=== PATIENT | male | born 1990 | race African-American/Black ===

== ENCOUNTER 2019-09-19 16:24 | Inpatient (IN) | payer OTHER ==
[2019-09-19] VITALS (9 sets, daily range): BP systolic 115–164; BP diastolic 62–104
[~2019-09-19] VITALS: Ht 170.2 cm; Wt 85.3 kg
--- NOTE | 2019-09-19 16:15 | NUR ---
Rec'd from [facility] floor from Dr Mayfield service for GI bleed still reportdly bleeding. reportedly rec'd 4 UPRBC there. IV x 1 patent. Pt very A&O, young man Denies any discomfort. at bedside. NS started. VSS. On RA. Skin warm and dry. SR Orders and labs placed. NPO for now. Bleeding scan ordered and consults called for GI and surgery. Will cont to monitor and complete adm process.
[2019-09-19] MEDS ORDERED: ACETAMINOPHEN 500 MG TABLET PO ONE (17:15)
[2019-09-19] MEDS ORDERED: ONDANSETRON PF 4 MG/2 ML VIAL. IVP PRN (17:15)
[2019-09-19] MEDS ORDERED: diphenhydrAMINE HCL 25 MG CAPSULE PO PRN (17:15)
[2019-09-19 17:19] LABS: BASO % 0 % (0-3); EOS # 0.2 x10^3/uL (0.0-0.7); EOS % 3 % (0-3); HEMATOCRIT 23.6 % (39.0-53.0); HEMOGLOBIN 7.6 g/dL (13.0-17.5); LYMPH # 2.3 x10^3/uL (1.0-4.8); LYMPH % 30 % (24-48); MEAN CORPUSCULAR HEMOGLOBIN 23 pg (25-35); MEAN CORPUSCULAR HGB CONC 32 g/dL (31-37); MEAN CORPUSCULAR VOLUME 71 fL (79-100); MONO # 0.8 x10^3/uL (0.0-1.1); MONO % 11 % (0-9); NEUT # 4.4 x10^3/uL (1.8-7.7); NEUT % 57 % (31-73); PLATELET COUNT 212 x10^3/uL (140-400); RED BLOOD COUNT 3.31 x10^6/uL (4.30-5.70); RED CELL DISTRIBUTION WIDTH 30.2 % (11.5-14.5); WHITE BLOOD COUNT 7.8 x10^3/uL (4.0-11.0)
[2019-09-19 17:23] LABS: CALCIUM 8.6 mg/dL (8.5-10.1); CREATININE 1.1 mg/dL (0.7-1.3); GFR 80.3; POTASSIUM 3.9 mmol/L (3.5-5.1)
[2019-09-19] MEDS ORDERED: PANTOPRAZOLE IV PUSH 40 MG VIAL. IVP SCH (17:30)
[2019-09-19 17:54] LABS: PLT ESTIMATE ADEQUATE (ADEQUATE)
[2019-09-19 17:55] LABS: HYPOCHROMIA MARKED; POIKILOCYTOSIS SLIGHT; POLYCHROMASIA SLIGHT
[2019-09-19 17:56] LABS: ANISOCYTOSIS MARKED; MICROCYTOSIS MOD; SCHISTOCYTES OCC
[2019-09-19] MEDS ORDERED: HEPARIN for NUC MED 500 UNIT/5 ML DISP.SYRIN. IV ONE (18:00)
--- NOTE | 2019-09-19 18:15 | NUR ---
To Bleeding scan with monitor
[2019-09-19] MEDS: IV NORMAL SALINE 1000ML BAG 1,000 ML IV SCH (18:23)
--- NOTE | 2019-09-19 20:06 | RAD ---
Examination: GI BLEED History: Bloody stools of the past 2 weeks which have become more frequent Comparison/Correlation: None Findings: 30 mCi technetium 99m UltraTag was utilized for GI bleed scan examination. Imaging was performed up to 53 minutes. Distribution of radiotracer is unremarkable. There is no abnormal distribution radiotracer suspicious for GI bleed. Impression: No evidence of active GI bleed. Electronically signed by: Stevenson Adrian MD (09/19/2019 8:03 PM) [facility]
[2019-09-19] MEDS ORDERED: IOHEXOL 350 MG/ML 100 ML VIAL. IV ONE (20:45)
[2019-09-19] MEDS ORDERED: CONTRAST GIVEN. MC PRN (20:45)
[2019-09-19] MEDS: PANTOPRAZOLE SODIUM IV DRIP 80 MG in IV NORMAL SALINE 100ML 100 ML IV SCH (20:53)
[2019-09-19] MEDS ORDERED: PANTOPRAZOLE IV PUSH 40 MG VIAL. IVP ONE (21:00)
--- NOTE | 2019-09-19 21:35 | RAD ---
Examination: CT ANGIOGRAPHY ABD AND PELVIS History: Very low hemoglobin. Possible GI bleed. Comparison/Correlation: July the wrist and urinary bladder scan performed earlier on the same day Findings: Axial images of the abdomen and pelvis were obtained prior to and following IV contrast. Arterial phase imaging was performed post contrast. Portal venous phase imaging also was performed post contrast. Maximum intensity projection 3-D reconstruction images provided. Sagittal and coronal reformatted images provided. Minimal bibasilar atelectasis noted. Liver, spleen, pancreas, and adrenal glands are unremarkable. Kidneys are normal. Gallbladder fossa is unremarkable. Punctate nonobstructive left renal lower pole calyceal calculus is present.. No hydronephrosis. Moderate quantity of stool in the colon noted. Appendix is normal. No ascites or pelvic free fluid. No extraluminal gas. No bowel obstruction. Arterial vasculature of the abdomen and pelvis is normal with no stenoses or extravasation. No aneurysm identified. Sacralization of L5 is noted. Impression: No abnormal distribution of contrast to suggest GI bleed. No extravasation of contrast. No ascites or pelvic free fluid. Punctate nonobstructive left renal calculus. PQRS Compliance Statement: One or more of the following individualized dose reduction techniques were utilized for this examination: 1. Automated exposure control 2. Adjustment of the mA and/or kV according to patient size 3. Use of iterative reconstruction technique Electronically signed by: Stevenson Adrian MD (09/19/2019 9:32 PM) [facility]
--- NOTE | 2019-09-19 23:00 | NUR ---
Pt bleeding scan resulted negative by radiologist. Results called to Dr. Rivera, on-call MD for GI. Received order for CT of abd/pelvis with contrast, change protonix 40 mg BID to IV gtt Protonix/dose of 80 mg IVP, okay for pt to have clear liquids if CT is negative. CT of abd/pelvis resulted negative by radiologist. Repeat hemogram showed Hgb of 7.6. Dr. Mayfield also updated on pt status. Received order "ok to tranfuse one unit PRBC if pt Hgb <7", draw hemogram Q6hrs. Orders all entered into system. Pts VSS, denies pain, afebrile. Pt is currently resting with eyes closed and call light within reach. Will continue to monitor.
[2019-09-19 23:46] LABS: HEMATOCRIT 23.9 % (39.0-53.0); HEMOGLOBIN 7.6 g/dL (13.0-17.5); RED BLOOD COUNT 3.36 x10^6/uL (4.30-5.70); RED CELL DISTRIBUTION WIDTH 29.9 % (11.5-14.5); WHITE BLOOD COUNT 8.7 x10^3/uL (4.0-11.0)
[2019-09-20] VITALS (14 sets, daily range): BP systolic 112–157; BP diastolic 57–98
[2019-09-20] MEDS: IV NORMAL SALINE 1000ML BAG 1,000 ML IV SCH ×2 (01:00→05:52)
--- NOTE | 2019-09-20 01:50 | NUR ---
Dr. Lebron notified of positive pt sepsis screen. Lactic drawn, blood cultures drawn. No new orders received at this time.
[2019-09-20] MEDS: PANTOPRAZOLE SODIUM IV DRIP 80 MG in IV NORMAL SALINE 100ML 100 ML IV SCH ×2 (04:03→15:48)
[2019-09-20 05:18] LABS: HEMOGLOBIN 7.5 g/dL (13.0-17.5); RED BLOOD COUNT 3.36 x10^6/uL (4.30-5.70); RED CELL DISTRIBUTION WIDTH 30.1 % (11.5-14.5); WHITE BLOOD COUNT 8.6 x10^3/uL (4.0-11.0)
[2019-09-20 05:24] LABS: CALCIUM 8.2 mg/dL (8.5-10.1); CREATININE 1.1 mg/dL (0.7-1.3); GFR 80.3; POTASSIUM 3.7 mmol/L (3.5-5.1)
[2019-09-20] MEDS ORDERED: IRON SUCROSE COMPLEX 200 MG in IV NORMAL SALINE 100ML 100 ML IV ONE (09:00)
--- NOTE | 2019-09-20 09:07 | PDOC2 ---
CONSULT Date of Consult Date of Consult DATE: 09/20/19 TIME: 09:04 Reason for Consult Reason for Consult: Anemia possible GI bleed Referring Physician Referring Physician: Chaparro Identification/Chief Complaint Chief Complaint Weak fatigue Source Source: Chart review, Patient History of Present Illness Reason for Visit: 29-year-old male who was feeling very weak and fatigued and short of breath when he was brought to the emergency room by his family for these complaints he has never had any abdominal pain and only bleeding is ever noticed was some blood with bowel movements on the toilet tissue no bleeding in between bowel movements no vomiting of blood. Currently resting comfortably in bed feeling much better after being transfused has had no bleeding from the rectum Past Medical History Cardiovascular: No pertinent hx Pulmonary: No pertinent hx GI: No pertinent hx Heme/Onc: No pertinent hx Hepatobiliary: No pertinent hx Psych: No pertinent hx Rheumatologic: No pertinent hx Infectious disease: No pertinent hx ENT: No pertinent hx Renal/: No pertinent hx Endocrine: No pertinent hx Dermatology: No pertinent hx Past Surgical History Past Surgical History: No pertinent history Family History Family History: Family History Unknown Social History No ALCOHOL: rare Drugs: None Lives: with Family Current Medications Current Medications Current Medications Pantoprazole Sodium (PROTONIX VIAL for IV PUSH) 40 mg Q12HR IVP ; Start 09/19/19 at 17:30; Stop 09/19/19 at 20:32; Status DC Sodium Chloride 1,000 ml @ 75 mls/hr [id number] IV Last administered on 09/20/19at 05:52; Start 09/19/19 at 17:00 Ondansetron HCl (Zofran) 4 mg PRN Q6HRS PRN IVP NAUSEA/VOMITING; Start 09/19/19 at 17:15 Diphenhydramine HCl (Benadryl) 25 mg 1X PRN PO ALLERGIES; Start 09/19/19 at 17:15 Acetaminophen (Tylenol) 1,000 mg 1X ONCE PO ; Start 09/19/19 at 17:15; Stop 09/19/19 at 17:16; Status DC Heparin Sodium (Porcine) (HEPARIN for NUC MED) 100 unit 1X ONCE IV ; Start 09/19/19 at 18:00; Stop 09/19/19 at 18:04; Status DC Pantoprazole Sodium (PROTONIX VIAL for IV PUSH) 80 mg ONCE ONCE IVP Last administered on 09/19/19at 21:34; Start 09/19/19 at 21:00; Stop 09/19/19 at 21:01; Status DC Pantoprazole Sodium 80 mg/ Sodium Chloride 100 ml @ 10 mls/hr Q10H IV Last administered on 09/20/19at 04:03; Start 09/19/19 at 21:00 Iohexol (Omnipaque 350 Mg/ml) 90 ml 1X ONCE IV Last administered on 09/19/19at 20:45; Start 09/19/19 at 20:45; Stop 09/19/19 at 20:46; Status DC Info (CONTRAST GIVEN -- Rx MONITORING) 1 each PRN DAILY PRN MC SEE COMMENTS; Start 09/19/19 at 20:45; Stop 09/21/19 at 20:44 Iron Sucrose 200 mg/Sodium Chloride 110 ml @ 55 mls/hr 1X ONCE IV Last administered on 09/20/19at 08:36; Start 09/20/19 at 09:00; Stop 09/20/19 at 10:59 Active Scripts Active Reported No Known Medications Prior To Admisstion (Info) Each 1 Each 1X Allergies Allergies: Coded Allergies: No Known Allergies (Verified Allergy, Unknown, 09/19/19) Physical Exam General: Alert, Oriented X3, Cooperative, No acute distress HEENT: Atraumatic, PERRLA, EOMI Lungs: Clear to auscultation, Normal air movement Heart: Regular rate, No murmurs Abdomen: Normal bowel sounds, Soft, No tenderness Extremities: No edema Skin: No significant lesion Neuro: Normal speech Psych/Mental Status: Mental status NL Vitals VITALS Vital Signs Date Time Temp Pulse Resp B/P (MAP) Pulse Ox O2 Delivery O2 Flow Rate FiO2 09/20/19 08:00 Room Air 09/20/19 06:00 75 19 123/70 (87) 100 09/20/19 04:00 98.8 98.8 Labs Labs Laboratory Tests Test 09/19/19 17:10 09/19/19 23:35 09/20/19 04:00 White Blood Count 7.8 x10^3/uL (4.0-11.0) 8.7 x10^3/uL (4.0-11.0) 8.6 x10^3/uL (4.0-11.0) Red Blood Count 3.31 x10^6/uL (4.30-5.70) 3.36 x10^6/uL (4.30-5.70) 3.36 x10^6/uL (4.30-5.70) Hemoglobin 7.6 g/dL (13.0-17.5) 7.6 g/dL (13.0-17.5) 7.5 g/dL (13.0-17.5) Hematocrit 23.6 % (39.0-53.0) 23.9 % (39.0-53.0) 24.0 % (39.0-53.0) Mean Corpuscular Volume 71 fL (79-100) 71 fL (79-100) 71 fL (79-100) Mean Corpuscular Hemoglobin 23 pg (25-35) 23 pg (25-35) 22 pg (25-35) Mean Corpuscular Hemoglobin Concent 32 g/dL (31-37) 32 g/dL (31-37) 31 g/dL (31-37) Red Cell Distribution Width 30.2 % (11.5-14.5) 29.9 % (11.5-14.5) 30.1 % (11.5-14.5) Platelet Count 212 x10^3/uL (140-400) 213 x10^3/uL (140-400) 224 x10^3/uL (140-400) Neutrophils (%) (Auto) 57 % (31-73) Lymphocytes (%) (Auto) 30 % (24-48) Monocytes (%) (Auto) 11 % (0-9) Eosinophils (%) (Auto) 3 % (0-3) Basophils (%) (Auto) 0 % (0-3) Neutrophils # (Auto) 4.4 x10^3/uL (1.8-7.7) Lymphocytes # (Auto) 2.3 x10^3/uL (1.0-4.8) Monocytes # (Auto) 0.8 x10^3/uL (0.0-1.1) Eosinophils # (Auto) 0.2 x10^3/uL (0.0-0.7) Basophils # (Auto) 0.0 x10^3/uL (0.0-0.2) Platelet Estimate Adequate (ADEQUATE) Polychromasia Slight Hypochromasia Marked Poikilocytosis Slight Anisocytosis Marked Microcytosis Mod Crenated Cell Present Schistocytes Occ Sodium Level 140 mmol/L (136-145) 142 mmol/L (136-145) Potassium Level 3.9 mmol/L (3.5-5.1) 3.7 mmol/L (3.5-5.1) Chloride Level 104 mmol/L (98-107) 106 mmol/L (98-107) Carbon Dioxide Level 27 mmol/L (21-32) 25 mmol/L (21-32) Anion Gap 9 (6-14) 11 (6-14) Blood Urea Nitrogen 11 mg/dL (8-26) 9 mg/dL (8-26) Creatinine 1.1 mg/dL (0.7-1.3) 1.1 mg/dL (0.7-1.3) Estimated GFR (Cockcroft-Gault) 80.3 80.3 Glucose Level 97 mg/dL (70-99) 91 mg/dL (70-99) Calcium Level 8.6 mg/dL (8.5-10.1) 8.2 mg/dL (8.5-10.1) Laboratory Tests Test 09/19/19 17:10 09/19/19 23:35 09/20/19 04:00 White Blood Count 7.8 x10^3/uL (4.0-11.0) 8.7 x10^3/uL (4.0-11.0) 8.6 x10^3/uL (4.0-11.0) Red Blood Count 3.31 x10^6/uL (4.30-5.70) 3.36 x10^6/uL (4.30-5.70) 3.36 x10^6/uL (4.30-5.70) Hemoglobin 7.6 g/dL (13.0-17.5) 7.6 g/dL (13.0-17.5) 7.5 g/dL (13.0-17.5) Hematocrit 23.6 % (39.0-53.0) 23.9 % (39.0-53.0) 24.0 % (39.0-53.0) Mean Corpuscular Volume 71 fL (79-100) 71 fL (79-100) 71 fL (79-100) Mean Corpuscular Hemoglobin 23 pg (25-35) 23 pg (25-35) 22 pg (25-35) Mean Corpuscular Hemoglobin Concent 32 g/dL (31-37) 32 g/dL (31-37) 31 g/dL (31-37) Red Cell Distribution Width 30.2 % (11.5-14.5) 29.9 % (11.5-14.5) 30.1 % (11.5-14.5) Platelet Count 212 x10^3/uL (140-400) 213 x10^3/uL (140-400) 224 x10^3/uL (140-400) Neutrophils (%) (Auto) 57 % (31-73) Lymphocytes (%) (Auto) 30 % (24-48) Monocytes (%) (Auto) 11 % (0-9) Eosinophils (%) (Auto) 3 % (0-3) Basophils (%) (Auto) 0 % (0-3) Neutrophils # (Auto) 4.4 x10^3/uL (1.8-7.7) Lymphocytes # (Auto) 2.3 x10^3/uL (1.0-4.8) Monocytes # (Auto) 0.8 x10^3/uL (0.0-1.1) Eosinophils # (Auto) 0.2 x10^3/uL (0.0-0.7) Basophils # (Auto) 0.0 x10^3/uL (0.0-0.2) Platelet Estimate Adequate (ADEQUATE) Polychromasia Slight Hypochromasia Marked Poikilocytosis Slight Anisocytosis Marked Microcytosis Mod Crenated Cell Present Schistocytes Occ Sodium Level 140 mmol/L (136-145) 142 mmol/L (136-145) Potassium Level 3.9 mmol/L (3.5-5.1) 3.7 mmol/L (3.5-5.1) Chloride Level 104 mmol/L (98-107) 106 mmol/L (98-107) Carbon Dioxide Level 27 mmol/L (21-32) 25 mmol/L (21-32) Anion Gap 9 (6-14) 11 (6-14) Blood Urea Nitrogen 11 mg/dL (8-26) 9 mg/dL (8-26) Creatinine 1.1 mg/dL (0.7-1.3) 1.1 mg/dL (0.7-1.3) Estimated GFR (Cockcroft-Gault) 80.3 80.3 Glucose Level 97 mg/dL (70-99) 91 mg/dL (70-99) Calcium Level 8.6 mg/dL (8.5-10.1) 8.2 mg/dL (8.5-10.1) Images Images [facility] bleeding scan was negative and CT scan also negative for GI blee d Assessment/Plan Assessment/Plan Anemia of unknown cause unlikely GI bleed No surgical indications at this time we'll follow and review evaluations by other specialists No surgical recommendations JC SULLIVAN MD Sep 20, 2019 09:07
--- NOTE | 2019-09-20 11:03 | PDOC2 ---
GI CONSULT Reason For Consult: anemia HPI: HPI: 29 y/o AAM with a 2.5 week history of rectal bleeding. He admits to weakness and shortness of breath. He does take Ibuprofen twice weekly. He went to [place] and was reportedly found to have a Hgb of 3.8. CTA and GI bleed scan are negative. He received 4 units PRBCs at [place] and has a Hgb of 7.5. 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 Her denies nausea, vomiting, abdominal pain, diarrhea or constipation. he has 2 BMs daily. 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[employer] on the weekend no IVDA Social History: Smoke: No ALCOHOL: heavy Drugs: None ROS: GEN: positive for fatigue HEENT: Denies blurred vision, sore throat CV: Denies chest pain RESP: positive for shortness of air, GI: Per HPI : Denies hematuria, dysuria ENDO: Denies weight changes NEURO: Denies confusion, dizziness MSK: positive joint pain/swelling SKIN: Denies jaundice, pruritus VItals: Vitals: Vital Signs Date Time Temp Pulse Resp B/P (MAP) Pulse Ox O2 Delivery O2 Flow Rate FiO2 09/20/19 10:00 81 15 149/98 (115) 100 Room Air 09/20/19 08:00 99.1 99.1 Labs: Labs: Laboratory Tests Test 09/19/19 17:10 09/19/19 23:35 09/20/19 04:00 White Blood Count 7.8 x10^3/uL (4.0-11.0) 8.7 x10^3/uL (4.0-11.0) 8.6 x10^3/uL (4.0-11.0) Red Blood Count 3.31 x10^6/uL (4.30-5.70) 3.36 x10^6/uL (4.30-5.70) 3.36 x10^6/uL (4.30-5.70) Hemoglobin 7.6 g/dL (13.0-17.5) 7.6 g/dL (13.0-17.5) 7.5 g/dL (13.0-17.5) Hematocrit 23.6 % (39.0-53.0) 23.9 % (39.0-53.0) 24.0 % (39.0-53.0) Mean Corpuscular Volume 71 fL (79-100) 71 fL (79-100) 71 fL (79-100) Mean Corpuscular Hemoglobin 23 pg (25-35) 23 pg (25-35) 22 pg (25-35) Mean Corpuscular Hemoglobin Concent 32 g/dL (31-37) 32 g/dL (31-37) 31 g/dL (31-37) Red Cell Distribution Width 30.2 % (11.5-14.5) 29.9 % (11.5-14.5) 30.1 % (11.5-14.5) Platelet Count 212 x10^3/uL (140-400) 213 x10^3/uL (140-400) 224 x10^3/uL (140-400) Neutrophils (%) (Auto) 57 % (31-73) Lymphocytes (%) (Auto) 30 % (24-48) Monocytes (%) (Auto) 11 % (0-9) Eosinophils (%) (Auto) 3 % (0-3) Basophils (%) (Auto) 0 % (0-3) Neutrophils # (Auto) 4.4 x10^3/uL (1.8-7.7) Lymphocytes # (Auto) 2.3 x10^3/uL (1.0-4.8) Monocytes # (Auto) 0.8 x10^3/uL (0.0-1.1) Eosinophils # (Auto) 0.2 x10^3/uL (0.0-0.7) Basophils # (Auto) 0.0 x10^3/uL (0.0-0.2) Platelet Estimate Adequate (ADEQUATE) Polychromasia Slight Hypochromasia Marked Poikilocytosis Slight Anisocytosis Marked Microcytosis Mod Crenated Cell Present Schistocytes Occ Sodium Level 140 mmol/L (136-145) 142 mmol/L (136-145) Potassium Level 3.9 mmol/L (3.5-5.1) 3.7 mmol/L (3.5-5.1) Chloride Level 104 mmol/L (98-107) 106 mmol/L (98-107) Carbon Dioxide Level 27 mmol/L (21-32) 25 mmol/L (21-32) Anion Gap 9 (6-14) 11 (6-14) Blood Urea Nitrogen 11 mg/dL (8-26) 9 mg/dL (8-26) Creatinine 1.1 mg/dL (0.7-1.3) 1.1 mg/dL (0.7-1.3) Estimated GFR (Cockcroft-Gault) 80.3 80.3 Glucose Level 97 mg/dL (70-99) 91 mg/dL (70-99) Calcium Level 8.6 mg/dL (8.5-10.1) 8.2 mg/dL (8.5-10.1) Imaging: Imaging: PATIENT: RUY ASENCIO ACCOUNT: [id number] : 1990 LOCATION: [address] [place] [address] AGE: 29 SEX: M EXAM STATUS: ADM IN ORD. PHYSICIAN: ALMA GOODSON MD REASON: Critically low Hgb, possible GI bleed PROCEDURE: CT ANGIOGRAPHY ABD AND PELVIS Examination: CT ANGIOGRAPHY ABD AND PELVIS History: Very low hemoglobin. Possible GI bleed. Comparison/Correlation: July the wrist and urinary bladder scan performed earlier on the same day Findings: Axial images of the abdomen and pelvis were obtained prior to and following IV contrast. Arterial phase imaging was performed post contrast. Portal venous phase imaging also was performed post contrast. Maximum intensity projection 3-D reconstruction images provided. Sagittal and coronal reformatted images provided. Minimal bibasilar atelectasis noted. Liver, spleen, pancreas, and adrenal glands are unremarkable. Kidneys are normal. Gallbladder fossa is unremarkable. Punctate nonobstructive left renal lower pole calyceal calculus is present.. No hydronephrosis. Moderate quantity of stool in the colon noted. Appendix is normal. No ascites or pelvic free fluid. No extraluminal gas. No bowel obstruction. Arterial vasculature of the abdomen and pelvis is normal with no stenoses or extravasation. No aneurysm identified. Sacralization of L5 is noted. Impression: No abnormal distribution of contrast to suggest GI bleed. No extravasation of contrast. No ascites or pelvic free fluid. Punctate nonobstructive left renal calculus. RS Compliance Statement: One or more of the following individualized dose reduction techniques were utilized for this examination: 1. Automated exposure control 2. Adjustment of the mA and/or kV according to patient size 3. Use of iterative reconstruction technique Electronically signed by: Stevenson Vasquez MD (09/19/2019 9:32 PM) [facility] DICTATED and SIGNED BY: STEVENSON VASQUEZ MD DATE: 09/19/192131 PATIENT: RUY ASENCIO ACCOUNT: [id number] : 1990 LOCATION: [address] [place] [address] AGE: 29 SEX: M EXAM STATUS: ADM IN ORD. PHYSICIAN: LUMA LAWLER MD REASON: gi bleed Tech was called PROCEDURE: GI BLEED Examination: GI BLEED History: Bloody stools of the past 2 weeks which have become more frequent Comparison/Correlation: None Findings: 30 mCi technetium 99m UltraTag was utilized for GI bleed scan examination. Imaging was performed up to 53 minutes. Distribution of radiotracer is unremarkable. There is no abnormal distribution radiotracer suspicious for GI bleed. Impression: No evidence of active GI bleed. Electronically signed by: Stevenson Vasquez MD (09/19/2019 8:03 PM) [facility] PE: GEN: NAD HEENT: Atraumatic, PERRLA LUNGS: CTAB HEART: RRR, no murmurs ABD: NABS, S/ND/NT, no masses EXTREMITY: No edema SKIN: No rashes, no jaundice NEURO/PSYCH: A & O 3 A/P: A/P: A 1) Anemia 2) Rectal bleed P 1) No iron indices checked prior to PRBCs or IV iron 2) Will continue PPI 3) Plan for EGD/Colon tomorrow ALMA GOODSON MD Sep 20, 2019 11:03
[2019-09-20] MEDS ORDERED: 0.9 % SODIUM CHLORIDE 10 ML DISP.SYRIN. IV PRN ×2 (11:15)
--- NOTE | 2019-09-20 11:29 | HP ---
ADMIT DATE: 09/19/2019 HISTORY OF PRESENT ILLNESS: The patient is a 29-year-old -[place] male patient who was admitted to the [facility] through the Emergency Room where he presented with increasing shortness of breath and generalized weakness. He stated that his heart was beating fast and he is getting tired all the time as well as he did also complain of chest discomfort. He was on an assignment in [facility] for approximately 6 months before returning to [facility] and he is up-to-date on his vaccination. He stated that in June of this year he has had lab work and was told his lab works are all fine and that he is perfectly healthy. He has never had any history of DVT or pulmonary embolism. He did complain of occasional episode of fresh blood per rectum; however, he has never had any esophagogastroduodenoscopy and colonoscopy. He was extensively investigated in the Emergency Room and his initial lab work showed that his hemoglobin was 3.8, hematocrit 13.4 with an MCV of only 59, although his white cell count and platelets are within normal range. His blood film showed that the patient has polychromasia, hypochromasia, anisocytosis, microcytosis and teardrop cells that are few. He was also noted to have hypokalemia and slightly elevated serum creatinine of 1.4. His prothrombin time and aPTT were normal. His D-dimer was slightly elevated 2.23 mg/dL. Urinalysis was essentially unremarkable and toxic screen was negative. The patient was admitted and has received 4 units of packed RBCs. In fact prior to transfer from [facility], his hemoglobin has risen to 7.9 and 25.2. His white cell count was 9200 and a platelet count of 222,000. His chemistry also has improved. His iron studies showed that his serum iron was only 8, TIBC was 518, iron saturation was 2%, and serum ferritin was only 4 ng/mL. The patient was transferred to [facility] as he had large amount of fresh blood per rectum when he had bowel movement in the bathroom and also some on his bedsheet and therefore he was transferred to [facility] to arrange for a bleeding scan to continue obviously monitoring his H and H and to consult the Gastroenterology and surgical team and obviously interventional radiologist. The PET scan was positive. PAST MEDICAL HISTORY: Unremarkable. PAST SURGICAL HISTORY: Significant for tonsillectomy, wisdom tooth extraction, vasectomy and left knee arthroscopic surgery. ALLERGIES: He has no known drug allergies. MEDICATIONS: He is not taking any medication by prescription or otherwise. He uses ibuprofen on an as needed basis for aches and pains. FAMILY HISTORY: He has 4 half-brothers and 4 half-sisters who are seemingly healthy. His father is still alive at the age of 50 and has had permanent pacemaker when he was 42 years old. His mother is alive at the age of 47 and has problem with anemia. She apparently has heavy periods and dysfunctional uterine bleeding requiring blood transfusion and eventually total abdominal hysterectomy. There is no family history of any blood disease. In particular, there is no history of sickle cell trait or sickle cell anemia. SOCIAL HISTORY: He is , has a son and a daughter. He does not smoke, drink alcohol or use recreational drugs. 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 He has had assignment to [employer] and [employer]. When he was in [place], he took a prophylactic medication for malaria, but he has never been diagnosed with malaria. REVIEW OF SYSTEMS: The patient denied any blurring of vision, cataract, glaucoma or macular degeneration. Denied any earache, tinnitus or sensorineural deafness. Denied any nosebleeds, stuffy nose or postnasal drip. Denied any sore throat, sore tongue, toothache, hoarseness of voice or difficulty swallowing. Denied any nausea, vomiting, diarrhea or constipation. Denied any hematemesis, melena or hematochezia. Denied any dysuria, frequency or hematuria. Did complain of some chest discomfort, but denied any chest pain. Did complain of shortness of breath, but denied any orthopnea or paroxysmal nocturnal dyspnea. He denied any cough, phlegm or hemoptysis. Denied any epistaxis. Denied any dizziness, lightheadedness, or vertigo. Did complain of profound weakness and shortness of breath. PHYSICAL EXAMINATION: GENERAL: When I examined him this morning, he was sitting slightly propped up in bed, in no apparent distress. He was pale, but no jaundice, cyanosis or thyromegaly. No jugular venous distention. No limb edema. VITAL SIGNS: His heart rate was 75, blood pressure was 123/70, temperature was 98.8, respiratory rate was 19 and oxygen saturation was 100% on room air. HEAD, EYES, EARS, NOSE AND THROAT: Showed normocephalic, atraumatic. NECK: Supple. HEART: Showed normal first and second heart sounds with no gallop or murmur. CHEST: Clear to auscultation. No crepitation or rhonchi. ABDOMEN: Distended, soft, nontender. NEUROLOGIC: He is awake, alert, responding appropriately. All his cranial nerves are intact. EXTREMITIES: He moves extremities without difficulty, ambulates without assistance or assistive devices. LABORATORY DATA: As of this morning showed a white cell count of 8600, hemoglobin 7.5, hematocrit 24, MCV 71 and platelet count 224,000. His chemistry showed a serum sodium 142, potassium 3.7, chloride 106, bicarbonate 25, anion gap of 11, BUN 9, creatinine 1.1, estimated GFR was 80 mL per minute. His glucose was 91 and calcium was 8.2. ASSESSMENT AND PLAN: In summary, this is a 29-year-old -[place] male patient who came with increasing shortness of breath and profound weakness, was found to have severe microcytic hypochromic anemia with a hemoglobin of only 3.8. He did receive 4 units of packed RBCs at [facility], and while there, he had large amount of fresh blood per rectum. He has hypokalemia on admission that has resolved and also acute kidney injury that has improved. The creatinine came down from 1.4 to 1.1. His serum iron is extremely low. TIBC was extremely high at 518. His serum ferritin is only 4. In summary, this is a patient with severe iron deficiency anemia, probably due to gastrointestinal bleeding. My plan is to continue to monitor his H and H. We did do a bleeding scan that was negative and showed no evidence of active gastrointestinal bleed. The CT scan of the abdomen and pelvis with IV contrast showed that the liver, spleen, pancreas and adrenal glands are unremarkable, kidneys are normal, gallbladder fossa is unremarkable, punctate nonobstructive, left renal lower pole calyceal calculus is present. No hydronephrosis, moderate quantity of stool in the colon noted. Appendix is normal. No ascites or pelvic free fluid. No extraluminal gas. No bowel obstruction. Arterial vasculature of the abdomen and pelvis are normal with no stenosis or extravasation. No aneurysm identified. Sacralization of L5 is noted. I will also start him on Venofer as he has severe iron deficiency anemia and we have already consulted GI services. We will also continue on Protonix drip as recommended by the malted milk supervisor. LUMA LAWLER MD DR: TESFAYE/halle JOB#: [id number] / [id number]
--- NOTE | 2019-09-20 11:50 | NUR ---
Dr. Rivera plans on scoping patient 09/21. Consents will be signed, patient prepped. Order received from Dr. Mayfield and Dr. Rivera to downgrade patient to MMOF status.
[2019-09-20 12:14] LABS: HEMOGLOBIN 8.4 g/dL (13.0-17.5); RED BLOOD COUNT 3.7 x10^6/uL (4.30-5.70); WHITE BLOOD COUNT 10.4 x10^3/uL (4.0-11.0)
[2019-09-20] MEDS ORDERED: BISACODYL 5 MG TABLET.DR. PO ONE (14:00)
--- NOTE | 2019-09-20 15:37 | NUR ---
RN called Dr. Mayfield and notified him of patient's dry persistent cough, not productive. Order received for Cayden MORROW. Notified him that patient has started bowel prep, clear liquids for scope tomorrow. Patient took Bisacodyl PO around two hours before beginning liquid bowel prep. Will start liquid around 1600.
[2019-09-20] MEDS ORDERED: guaiFENesin DM 200MG/20MG 10 ML SYRUP PO PRN (15:45)
[2019-09-20] MEDS ORDERED: PEG 3350/NA SULF,BICARB,CL/KCL 4,000 ML SOLUTION. PO ONE (16:00)
--- NOTE | 2019-09-20 18:21 | NUR ---
Patient transferred to room 669 via wheelchair. All belongings with patient at time of transfer. Patient's earrings placed in black zip-up bag from home per patient request. Patient notified his of transfer. Report given to Joy FARNSWORTH on 6S. Patient has had several BM's since starting bowel prep. See assessments, I/O.
[2019-09-20 19:19] LABS: HEMATOCRIT 26.7 % (39.0-53.0); HEMOGLOBIN 8.4 g/dL (13.0-17.5); RED BLOOD COUNT 3.75 x10^6/uL (4.30-5.70); RED CELL DISTRIBUTION WIDTH 30.6 % (11.5-14.5); WHITE BLOOD COUNT 11.9 x10^3/uL (4.0-11.0)
[2019-09-21] VITALS: BP 122/68
[2019-09-21] MEDS: PANTOPRAZOLE SODIUM IV DRIP 80 MG in IV NORMAL SALINE 100ML 100 ML IV SCH ×2 (03:22→12:01)
[2019-09-21 04:45] VITALS: BP 119/71
[2019-09-21 05:33] LABS: CALCIUM 8.5 mg/dL (8.5-10.1); CREATININE 1.1 mg/dL (0.7-1.3); GFR 97.2; POTASSIUM 3.5 mmol/L (3.5-5.1)
[2019-09-21 06:23] LABS: HEMATOCRIT 23.4 % (39.0-53.0); HEMOGLOBIN 7.5 g/dL (13.0-17.5); RED BLOOD COUNT 3.3 x10^6/uL (4.30-5.70); RED CELL DISTRIBUTION WIDTH 30.5 % (11.5-14.5); WHITE BLOOD COUNT 9.9 x10^3/uL (4.0-11.0)
[2019-09-21 07:00] VITALS: BP 134/78
[2019-09-21] MEDS: IV NORMAL SALINE 1000ML BAG 1,000 ML IV SCH (09:00)
--- NOTE | 2019-09-21 09:33 | PDOC ---
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 09/21/19 0933: SURGICAL PROGRESS NOTE Subjective no current complaints bowel prep done for scope today Vital Signs Vital Signs Date Time Temp Pulse Resp B/P (MAP) Pulse Ox O2 Delivery O2 Flow Rate FiO2 09/21/19 08:00 Room Air 09/21/19 07:00 98.3 91 18 134/78 (96) 100 98.3 I&O Intake and Output 09/21/19 06:59 Intake Total 850 ml Output Total 750 ml Balance 100 ml Intake Oral 850 ml Output Urine Total 750 ml # Voids 1 General: Alert, Oriented X3, Cooperative Abdomen: Soft, No tenderness Labs Laboratory Tests Test 09/19/19 17:10 09/19/19 23:35 09/20/19 04:00 09/20/19 12:00 White Blood Count 7.8 x10^3/uL (4.0-11.0) 8.7 x10^3/uL (4.0-11.0) 8.6 x10^3/uL (4.0-11.0) 10.4 x10^3/uL (4.0-11.0) Red Blood Count 3.31 x10^6/uL (4.30-5.70) 3.36 x10^6/uL (4.30-5.70) 3.36 x10^6/uL (4.30-5.70) 3.70 x10^6/uL (4.30-5.70) Hemoglobin 7.6 g/dL (13.0-17.5) 7.6 g/dL (13.0-17.5) 7.5 g/dL (13.0-17.5) 8.4 g/dL (13.0-17.5) Hematocrit 23.6 % (39.0-53.0) 23.9 % (39.0-53.0) 24.0 % (39.0-53.0) 27.0 % (39.0-53.0) Mean Corpuscular Volume 71 fL (79-100) 71 fL (79-100) 71 fL (79-100) 73 fL (79-100) Mean Corpuscular Hemoglobin 23 pg (25-35) 23 pg (25-35) 22 pg (25-35) 23 pg (25-35) Mean Corpuscular Hemoglobin Concent 32 g/dL (31-37) 32 g/dL (31-37) 31 g/dL (31-37) 31 g/dL (31-37) Red Cell Distribution Width 30.2 % (11.5-14.5) 29.9 % (11.5-14.5) 30.1 % (11.5-14.5) 30.0 % (11.5-14.5) Platelet Count 212 x10^3/uL (140-400) 213 x10^3/uL (140-400) 224 x10^3/uL (140-400) 234 x10^3/uL (140-400) Neutrophils (%) (Auto) 57 % (31-73) Lymphocytes (%) (Auto) 30 % (24-48) Monocytes (%) (Auto) 11 % (0-9) Eosinophils (%) (Auto) 3 % (0-3) Basophils (%) (Auto) 0 % (0-3) Neutrophils # (Auto) 4.4 x10^3/uL (1.8-7.7) Lymphocytes # (Auto) 2.3 x10^3/uL (1.0-4.8) Monocytes # (Auto) 0.8 x10^3/uL (0.0-1.1) Eosinophils # (Auto) 0.2 x10^3/uL (0.0-0.7) Basophils # (Auto) 0.0 x10^3/uL (0.0-0.2) Platelet Estimate Adequate (ADEQUATE) Polychromasia Slight Hypochromasia Marked Poikilocytosis Slight Anisocytosis Marked Microcytosis Mod Crenated Cell Present Schistocytes Occ Sodium Level 140 mmol/L (136-145) 142 mmol/L (136-145) Potassium Level 3.9 mmol/L (3.5-5.1) 3.7 mmol/L (3.5-5.1) Chloride Level 104 mmol/L (98-107) 106 mmol/L (98-107) Carbon Dioxide Level 27 mmol/L (21-32) 25 mmol/L (21-32) Anion Gap 9 (6-14) 11 (6-14) Blood Urea Nitrogen 11 mg/dL (8-26) 9 mg/dL (8-26) Creatinine 1.1 mg/dL (0.7-1.3) 1.1 mg/dL (0.7-1.3) Estimated GFR (Cockcroft-Gault) 80.3 80.3 Glucose Level 97 mg/dL (70-99) 91 mg/dL (70-99) Calcium Level 8.6 mg/dL (8.5-10.1) 8.2 mg/dL (8.5-10.1) Test 09/20/19 18:55 09/21/19 04:15 White Blood Count 11.9 x10^3/uL (4.0-11.0) 9.9 x10^3/uL (4.0-11.0) Red Blood Count 3.75 x10^6/uL (4.30-5.70) 3.30 x10^6/uL (4.30-5.70) Hemoglobin 8.4 g/dL (13.0-17.5) 7.5 g/dL (13.0-17.5) Hematocrit 26.7 % (39.0-53.0) 23.4 % (39.0-53.0) Mean Corpuscular Volume 71 fL (79-100) 71 fL (79-100) Mean Corpuscular Hemoglobin 22 pg (25-35) 23 pg (25-35) Mean Corpuscular Hemoglobin Concent 31 g/dL (31-37) 32 g/dL (31-37) Red Cell Distribution Width 30.6 % (11.5-14.5) 30.5 % (11.5-14.5) Platelet Count 254 x10^3/uL (140-400) 235 x10^3/uL (140-400) Sodium Level 142 mmol/L (136-145) Potassium Level 3.5 mmol/L (3.5-5.1) Chloride Level 107 mmol/L (98-107) Carbon Dioxide Level 24 mmol/L (21-32) Anion Gap 11 (6-14) Blood Urea Nitrogen 5 mg/dL (8-26) Creatinine 1.1 mg/dL (0.7-1.3) Estimated GFR (Cockcroft-Gault) 97.2 Glucose Level 88 mg/dL (70-99) Calcium Level 8.5 mg/dL (8.5-10.1) Laboratory Tests Test 09/20/19 12:00 09/20/19 18:55 09/21/19 04:15 White Blood Count 10.4 x10^3/uL (4.0-11.0) 11.9 x10^3/uL (4.0-11.0) 9.9 x10^3/uL (4.0-11.0) Red Blood Count 3.70 x10^6/uL (4.30-5.70) 3.75 x10^6/uL (4.30-5.70) 3.30 x10^6/uL (4.30-5.70) Hemoglobin 8.4 g/dL (13.0-17.5) 8.4 g/dL (13.0-17.5) 7.5 g/dL (13.0-17.5) Hematocrit 27.0 % (39.0-53.0) 26.7 % (39.0-53.0) 23.4 % (39.0-53.0) Mean Corpuscular Volume 73 fL (79-100) 71 fL (79-100) 71 fL (79-100) Mean Corpuscular Hemoglobin 23 pg (25-35) 22 pg (25-35) 23 pg (25-35) Mean Corpuscular Hemoglobin Concent 31 g/dL (31-37) 31 g/dL (31-37) 32 g/dL (31-37) Red Cell Distribution Width 30.0 % (11.5-14.5) 30.6 % (11.5-14.5) 30.5 % (11.5-14.5) Platelet Count 234 x10^3/uL (140-400) 254 x10^3/uL (140-400) 235 x10^3/uL (140-400) Sodium Level 142 mmol/L (136-145) Potassium Level 3.5 mmol/L (3.5-5.1) Chloride Level 107 mmol/L (98-107) Carbon Dioxide Level 24 mmol/L (21-32) Anion Gap 11 (6-14) Blood Urea Nitrogen 5 mg/dL (8-26) Creatinine 1.1 mg/dL (0.7-1.3) Estimated GFR (Cockcroft-Gault) 97.2 Glucose Level 88 mg/dL (70-99) Calcium Level 8.5 mg/dL (8.5-10.1) Assessment/Plan await endoscopy JC SULLIVAN MD 09/21/19 0947: SURGICAL PROGRESS NOTE Assessment/Plan Patient comfortable no abdominal pain no new complaints. Being called to have his endoscopy done today tolerated prep without difficulty. We'll follow up on endoscopy results. He with Lange assessment and plan PORSCHE JASMINE APRN Sep 21, 2019 09:33 JC SULLIVAN MD Sep 21, 2019 09:47
[2019-09-21] MEDS ORDERED: IV RINGERS,LACTATED 1000ML 1,000 ML IV ONE (09:45)
[2019-09-21] MEDS ORDERED: PROPOFOL 60 ML IV ONE (10:13)
[2019-09-21] MEDS ORDERED: LIDOCAINE 2% PF 5 ML VIAL. ONE (10:13)
[2019-09-21] MEDS ORDERED: PROPOFOL 20 ML IV ONE (10:50)
--- NOTE | 2019-09-21 10:52 | PDOC ---
Subjective: Subjective: Prep overnight with bleeding Objective: Vital Signs: Vital Signs Date Time Temp Pulse Resp B/P (MAP) Pulse Ox O2 Delivery O2 Flow Rate FiO2 09/21/19 09:39 Room Air 09/21/19 09:34 97.8 58 18 100 97.8 09/21/19 07:00 134/78 (96) Labs: Laboratory Tests Test 09/20/19 12:00 09/20/19 18:55 09/21/19 04:15 White Blood Count 10.4 x10^3/uL (4.0-11.0) 11.9 x10^3/uL (4.0-11.0) 9.9 x10^3/uL (4.0-11.0) Red Blood Count 3.70 x10^6/uL (4.30-5.70) 3.75 x10^6/uL (4.30-5.70) 3.30 x10^6/uL (4.30-5.70) Hemoglobin 8.4 g/dL (13.0-17.5) 8.4 g/dL (13.0-17.5) 7.5 g/dL (13.0-17.5) Hematocrit 27.0 % (39.0-53.0) 26.7 % (39.0-53.0) 23.4 % (39.0-53.0) Mean Corpuscular Volume 73 fL (79-100) 71 fL (79-100) 71 fL (79-100) Mean Corpuscular Hemoglobin 23 pg (25-35) 22 pg (25-35) 23 pg (25-35) Mean Corpuscular Hemoglobin Concent 31 g/dL (31-37) 31 g/dL (31-37) 32 g/dL (31-37) Red Cell Distribution Width 30.0 % (11.5-14.5) 30.6 % (11.5-14.5) 30.5 % (11.5-14.5) Platelet Count 234 x10^3/uL (140-400) 254 x10^3/uL (140-400) 235 x10^3/uL (140-400) Sodium Level 142 mmol/L (136-145) Potassium Level 3.5 mmol/L (3.5-5.1) Chloride Level 107 mmol/L (98-107) Carbon Dioxide Level 24 mmol/L (21-32) Anion Gap 11 (6-14) Blood Urea Nitrogen 5 mg/dL (8-26) Creatinine 1.1 mg/dL (0.7-1.3) Estimated GFR (Cockcroft-Gault) 97.2 Glucose Level 88 mg/dL (70-99) Calcium Level 8.5 mg/dL (8.5-10.1) Physical Exam: Physical Exam: GEN: NAD HEENT: OP clear CV: S1S2 without murmurs, rubs, or gallops RESP: CTAB without wheezing, rhonchi, or crackles ABD: NABS, SNT/ND EXT: No edema NEURO: AAO x 3 Assessment & Plan: Assessment : EGD (full note on chart) Findings: 1) Esophagitis - biopsied 2) Gastritis: biopsied 3) Nomral duodenum- biopsied Colonoscopy (full note on chart) Findings 1) Nodular terminal ileum- biopsied 2) 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 Clip placed. Bleeding stopped 3) Non bleeding internal hemorrhoids Plan: Plan: 1) Await biopsy results 2) Followup with GI for capsule endoscopy to evaluate the small bowel for source of bleeding (suspect more AVMs) ALMA GOODSON MD Sep 21, 2019 10:52
[2019-09-21 11:00] VITALS: BP 142/94
[2019-09-21] MEDS ORDERED: ASCO500C9 PO (11:38)
[2019-09-21] MEDS ORDERED: FERR325T14 PO (11:38)
[2019-09-21] MEDS ORDERED: IRON SUCROSE COMPLEX 500 MG in IV NORMAL SALINE 250ML 250 ML IV ONE (13:00)
[2019-09-21 13:56] LABS: HEMOGLOBIN 8.4 g/dL (13.0-17.5); RED BLOOD COUNT 3.79 x10^6/uL (4.30-5.70); WHITE BLOOD COUNT 9.8 x10^3/uL (4.0-11.0)
[2019-09-21 15:00] VITALS: BP 144/86
--- NOTE | 2019-09-21 15:08 | NUR ---
Pt escorted out by wheelchair with spouse and Sammie MCHUGH, to main entrance with belongings.
--- NOTE | 2019-09-22 13:07 | PATHOLOGY ---
[facility] Accession Number: [id number] . 01 Material submitted: . PART A: small bowel - SMALL BOWEL BX PART B: stomach - GASTRIC ANTRUM BX PART C: esophagus - DISTAL ESOPHAGUS BX. Modifiers: distal PART D: ileum - TERMINAL ILEUM NODULAR BX . 01 Clinical history: . GI bleed . 02 Diagnosis: A. Small bowel, biopsy: - No pathologic diagnosis. - Normal villous architecture. . B. Stomach, antrum, biopsy: - Chronic superficial gastritis, mild. - No evidence of Helicobacter pylori on immunoperoxidase stain. . C. Esophagus, distal, biopsy: - Gastric-type columnar epithelium with mild chronic inflammation. - No evidence of intestinal metaplasia. . D. "Terminal ileum nodular biopsy": - Small bowel mucosa with submucosal lymphoid follicle. . (SKM:fabio; 09/22/2019) [facility] 09/22/2019 0955 [facility] . 02 Electronically signed: . Berny Resendez MD, Pathologist NPI- [id number] . 01 Gross description: . A. The specimen is received in formalin, labeled "Abiel Llanes, small bowel biopsy". Received are four segments of pale hwang soft tissue ranging in size from 0.3 to 0.6 cm in maximum dimensions. The specimen is submitted entirely in cassette A1. . B. The specimen is received in formalin, labeled "Abiel Llanes, gastric antrum biopsy". Received are four segments of pale hwang soft tissue ranging in size from 0.3 to 0.4 cm in maximum dimensions. The specimen is submitted entirely in cassette B1. . C. The specimen is received in formalin, labeled "Abiel Llanes, distal esophagus biopsy". Received are four segments of pale hwang soft tissue ranging in size from 0.1 to 0.4 cm in maximum dimensions. The specimen is submitted entirely in cassette C1. . D. The specimen is received in formalin, labeled "Abiel Llanes, terminal ileum nodular biopsy". Received is a segment of pale hwang soft tissue measuring 1.3 cm in maximum dimensions. The specimen is submitted entirely in cassette D1. (CAA; 09/21/2019) QA/QA 09/21/2019 1506 Local . 02 Pathologist provided ICD-10: K29.50, K20.9 . 02 CPT . 446005, 268584, 215025, [id number], [id number] Specimen Comment: A courtesy copy of this report has been sent to [phone], [phone] Specimen Comment: [id number] Specimen Comment: Report sent to / DR LAWLER Performed at: 01 [facility] [address] [facility] [address], [place] [id number] MD Elmer Ross MD Phone: [phone] Performed at: 02 [facility] [address] [place], [place] [id number] MD Lew White MD Phone: [phone]
== END 2019-09-21 15:11 | disposition home or self-care (01) | DRG 378 ==
LOC: 1 WEST ICU 16:24 → 6 SOUTH 09-20 18:00
PROVIDERS: ADMIT Internal Medicine; ATTEND Internal Medicine
PROC: 0DBB8ZX Excision of Ileum, Via Natural or Artificial Opening Endoscopic, Diagnostic (ICD-10-PCS; 2019-09-21)
PROC: 0W3P8ZZ Control Bleeding in Gastrointestinal Tract, Via Natural or Artificial Opening Endoscopic (ICD-10-PCS; 2019-09-21)
PROC: 0DB98ZX Excision of Duodenum, Via Natural or Artificial Opening Endoscopic, Diagnostic (ICD-10-PCS; principal; 2019-09-21 11:00)
PROC: 0DB68ZX Excision of Stomach, Via Natural or Artificial Opening Endoscopic, Diagnostic (ICD-10-PCS; 2019-09-21 11:00)
PROC: 0DB58ZX Excision of Esophagus, Via Natural or Artificial Opening Endoscopic, Diagnostic (ICD-10-PCS; 2019-09-21 11:00)
DX: K55.21 Angiodysplasia of colon with hemorrhage (principal); N17.9 Acute kidney failure, unspecified; K62.5 Hemorrhage of anus and rectum; E87.6 Hypokalemia; D50.9 Iron deficiency anemia, unspecified; Q76.49 Other congenital malformations of spine, not associated with scoliosis; K20.9 Esophagitis, unspecified; K29.70 Gastritis, unspecified, without bleeding; K44.9 Diaphragmatic hernia without obstruction or gangrene; K64.8 Other hemorrhoids
CPT/HCPCS: 36415; 43239; 45380; 45382; 74174; 78278; 80048; 85025; 85027; 88305; 88342; 96374; A9560; C9113; J1756; J2001; J2704; J7030; J7050; J7120; Q9967; G0378